=== PATIENT | male | born 1990 | race Caucasian/White ===

== ENCOUNTER 2017-04-28 16:47 | Emergency (ER) | payer OTHER ==
[2017-04-28] MEDS ORDERED: Acetaminophen/oxyCODONE 325-5 MG Tab PO ONE (17:10)
--- NOTE | 2017-04-28 17:18 | EDM.PDOC ---
ED HPI GENERAL MEDICAL PROBLEM - General Chief Complaint: General Stated Complaint: tooth abscess Time Seen by Provider: 04/28/17 17:00 Source of Information: Reports: Patient History Limitations: Reports: No Limitations - History of Present Illness INITIAL COMMENTS - FREE TEXT/NARRATIVE: Manuel comes to [facility] ED with a suspected infected wisdom tooth on the L maxilla , sxs for a week, and escalating today. He has an appt to see DDS next week, and is requesting medical therapy. He has been taking Ibuprofen 800 mg without benefit. - Related Data Allergies Allergy/AdvReac Type Severity Reaction Status Date / Time shellfish derived Allergy Severe Swelling Verified 04/28/17 16:53 amoxicillin trihydrate Allergy Rash Verified 04/28/17 16:53 [From Augmentin] potassium clavulanate Allergy Rash Verified 04/28/17 16:53 [From Augmentin] Home Meds: Home Meds Ibuprofen [Motrin] 800 mg PO QID PRN 04/28/17 [History] Past Medical History - Past Health History Medical/Surgical History: Denies Medical/Surgical History Social & Family History - Tobacco Use Smoking Status *Q: Current Every Day Smoker Years of Tobacco use: 7 Packs/Tins Daily: 0.5 Second Hand Smoke Exposure: Yes - Caffeine Use Caffeine Use: Reports: Energy Drinks, Soda - Alcohol Use Days Per Week of Alcohol Use: 2 Number of Drinks Per Day: 6 Total Drinks Per Week: 12 - Recreational Drug Use Recreational Drug Use: No Recreational Drug Type: Reports: Marijuana/Hashish - Living Situation & Occupation Living situation: Reports: ED ROS GENERAL - Review of Systems Review Of Systems: ROS reveals no pertinent complaints other than HPI. ED EXAM, GENERAL - Physical Exam Exam: See Below Exam Limited By: No Limitations General Appearance: Alert, WD/WN, Mild Distress Ears: Normal External Exam, Normal TMs Nose: Normal Inspection Throat/Mouth: Normal Lips, Normal Oropharynx, Normal Voice, Other (tooth #16 deeply caried and tender to percussion) Head: Normocephalic Neck: Normal Inspection, Supple, Non-Tender, Full Range of Motion Respiratory/Chest: Lungs Clear, Normal Breath Sounds Cardiovascular: Regular Rate, Rhythm Back Exam: Normal Inspection Extremities: Normal Inspection Neurological: Alert, Oriented, CN II-XII Intact, Normal Cognition Psychiatric: Normal Affect, Normal Mood Skin Exam: Warm, Dry Lymphatic: No Adenopathy Course - Vital Signs Text/Narrative:: Manuel has a caried #16 molar that needs DDS surgery. He was administered Percocet 5/325 po for pain, and sent home with Clindamycin 450 mg tid po pending visit with DDS. Last Recorded V/S: Last Vital Signs Temp 36.8 C 04/28/17 16:59 Pulse 90 04/28/17 16:59 Resp 20 04/28/17 16:59 BP 158/84 H 04/28/17 16:59 Pulse Ox 100 04/28/17 16:59 Departure - Departure Time of Disposition: 17:23 Disposition: Home, Self-Care 01 Condition: Fair Clinical Impression: Infected dental carries - Discharge Information - Problem List & Annotations (1) Infected dental carries SNOMED Code(s): 24059465 Code(s): K02.9 - DENTAL CARIES, UNSPECIFIED; K04.7 - PERIAPICAL ABSCESS WITHOUT SINUS Status: Acute Annotation/Comment:: Manuel was dispensed Clindamycin 450 mg tid pending visit with DDS, suggested oil of cloves packing to the caried molar with PRN changes, and NSAIDs for pain. - Problem List Review Problem List Initiated/Reviewed/Updated: Yes - Assessment/Plan Plan: Follow up with DDS.
[2017-04-28] MEDS ORDERED: Clindamycin HCl 150 MG Cap PO SCH ×3 (17:29→21:00)
[2017-04-28] MEDS ORDERED: Clindamycin HCl 150 MG Cap ONE (17:30)
[2017-04-28 17:46] VITALS: BP 128/69
== END 2017-04-28 17:45 | disposition home or self-care (01) ==
LOC: FB.ED 16:47
DX: K02.9 Dental caries, unspecified (principal); F17.210 Nicotine dependence, cigarettes, uncomplicated; Z88.1 Allergy status to other antibiotic agents; Z88.8 Allergy status to other drugs, medicaments and biological substances; Z91.013 Allergy to seafood
CPT/HCPCS: 99283; A9270

== ENCOUNTER 2020-11-08 04:13 | Emergency (ER) | payer MEDICAID ==
[2020-11-08 04:25] VITALS: BP 143/83; PULSE 91
--- NOTE | 2020-11-08 04:55 | EDM.PDOC ---
ED HPI GENERAL MEDICAL PROBLEM - General Chief Complaint: Skin Complaint Stated Complaint: SWOLLEN FACE Time Seen by Provider: 11/08/20 04:20 Source of Information: Reports: Patient History Limitations: Reports: No Limitations - History of Present Illness INITIAL COMMENTS - FREE TEXT/NARRATIVE: Patient presented to the ED because of a pimple that he itched last night and now it turned red and swollen. There is no fever or chills. He is able to talk and open his mouth without any difficulty. left side of the face Pain Score (Numeric/FACES): 8 - Related Data Allergies Allergy/AdvReac Type Severity Reaction Status Date / Time shellfish derived Allergy Severe Swelling Verified 11/08/20 04:22 amoxicillin trihydrate Allergy Rash Verified 11/08/20 04:22 [From Augmentin] potassium clavulanate Allergy Rash Verified 11/08/20 04:22 [From Augmentin] Home Meds: Home Meds Ibuprofen [Motrin] 800 mg PO QID PRN 04/28/17 [History] Clindamycin HCl 300 mg PO TID #60 capsule 11/08/20 [Rx] Ketorolac [Toradol] 10 mg PO TID PRN #15 tab 11/08/20 [Rx] cephALEXin [Keflex] 500 mg PO Q8H #30 cap 11/08/20 [Rx] Past Medical History - Past Health History Medical/Surgical History: Denies Medical/Surgical History Musculoskeletal History: Reports: Other (See Below) Other Musculoskeletal History: hx of broken bones as per patient. Psychiatric History: Reports: Anxiety Social & Family History - Family History Family Medical History: No Pertinent Family History - Tobacco Use Tobacco Use Status *Q: Current Every Day Tobacco User Years of Tobacco use: 10 Packs/Tins Daily: 1 Second Hand Smoke Exposure: Yes - Caffeine Use Caffeine Use: Reports: Coffee, Energy Drinks, Soda - Recreational Drug Use Recreational Drug Use: Yes Recreational Drug Type: Reports: Marijuana/Hashish - Living Situation & Occupation Living situation: Reports: ED ROS GENERAL - Review of Systems Review Of Systems: See Below Constitutional: Reports: No Symptoms HEENT: Reports: Other (facial pain and swelling) Respiratory: Reports: No Symptoms Cardiovascular: Reports: No Symptoms Endocrine: Reports: No Symptoms GI/Abdominal: Reports: No Symptoms : Reports: No Symptoms Musculoskeletal: Reports: No Symptoms Skin: Reports: No Symptoms Neurological: Reports: No Symptoms Psychiatric: Reports: No Symptoms ED EXAM, SKIN/RASH Exam: See Below Exam Limited By: No Limitations General Appearance: Alert, No Apparent Distress Ears: Normal External Exam, Normal Canal, Hearing Grossly Normal Nose: Normal Inspection, Normal Mucosa Throat/Mouth: Normal Inspection, Normal Lips Head: Atraumatic, Normocephalic Neck: Normal Inspection, Non-Tender, Full Range of Motion Respiratory/Chest: No Respiratory Distress, Lungs Clear, Normal Breath Sounds Cardiovascular: Normal Peripheral Pulses, Regular Rate, Rhythm, No Edema, No JVD, No Murmur GI/Abdominal: Normal Bowel Sounds, Soft, Non-Tender, No Organomegaly Back Exam: Normal Inspection, Full Range of Motion Extremities: Normal Inspection, Normal Range of Motion, Non-Tender, No Pedal Edema, Normal Capillary Refill Neurological: Alert, Oriented, CN II-XII Intact, Normal Cognition, Normal Gait, Normal Reflexes, No Motor/Sensory Deficits Psychiatric: Normal Affect, Normal Mood Skin: Warm, Dry, Intact, Normal Color, No Rash, Erythema Course - Vital Signs Text/Narrative:: Refused: Toradol, clindamycin, cephalexin Last Recorded V/S: Last Vital Signs Temp 36.5 C 11/08/20 04:15 Pulse 91 11/08/20 04:15 Resp 16 11/08/20 04:15 BP 143/83 H 11/08/20 04:15 Pulse Ox 95 11/08/20 04:15 - Orders/Labs/Meds Meds: Medications Discontinued Medications Generic Name Dose Route Start Last Admin Trade Name Cashq PRN Reason Stop Dose Admin Cephalexin 500 mg 11/08/20 04:44 Cephalexin 500 Mg Cap PO 11/08/20 04:45 NOW STA Clindamycin HCl 600 mg 11/08/20 04:44 Clindamycin Hcl 150 Mg Cap PO 11/08/20 04:45 NOW STA Ketorolac Tromethamine 60 mg 11/08/20 04:44 Ketorolac 60 Mg/2 Ml Sdv IM 11/08/20 04:45 NOW STA Departure - Departure Time of Disposition: 05:00 Disposition: Home, Self-Care 01 Condition: Good Clinical Impression: Facial cellulitis - Discharge Information Prescriptions: Clindamycin HCl 300 mg PO TID #60 capsule cephALEXin [Keflex] 500 mg PO Q8H #30 cap Ketorolac [Toradol] 10 mg PO TID PRN #15 tab PRN Reason: Pain Instructions: Cellulitis, Adult, [id number] Referrals: PCP,None [Primary Care Provider] - Forms: ED Department Discharge Additional Instructions: Please read discharge instructions on facial cellulitis Apply ice or heat whichever makes the pain feel better Take toradol 10 mg with tylenol 1000 mg every 8 hours as needed for pain and swelling Keflex/cephalexin and clindamycin 600 mg 3 times daily for 10 days Follow up in 3-5 days if it's not getting better Sepsis Event Note (ED) - Evaluation Sepsis Screening Result: No Definite Risk - Focused Exam Vital Signs: Vital Signs Temp Pulse Resp BP Pulse Ox 11/08/20 04:15 36.5 C 91 16 143/83 H 95
[2020-11-08] MEDS: Clindamycin HCl 150 MG Cap PO STA (04:57)
[2020-11-08] MEDS: Ketorolac 60 MG/2 ML SDV IM STA (04:57)
[2020-11-08] MEDS: Cephalexin 500 MG Cap PO STA (04:57)
== END 2020-11-08 05:05 | disposition home or self-care (01) ==
LOC: FB.ED 04:13
DX: L03.211 Cellulitis of face (principal); Z91.013 Allergy to seafood; Z88.1 Allergy status to other antibiotic agents; Z72.0 Tobacco use
CPT/HCPCS: 99283; A9270-GY; J1885

== ENCOUNTER 2020-11-13 13:51 | Emergency (ER) | payer MEDICAID ==
--- NOTE | 2020-11-13 14:00 | EDM.PDOC ---
ED HPI GENERAL MEDICAL PROBLEM - General Stated Complaint: possible heart attack Time Seen by Provider: 11/13/20 14:00 Source of Information: Reports: Patient History Limitations: Reports: No Limitations - History of Present Illness INITIAL COMMENTS - FREE TEXT/NARRATIVE: 30-year-old male who reports she was taking a shower at approximately 1:15 PM today and he begin to feel in his left arm and then it seemed to go all over the left side of his body and then he began to feel numb all over. He didn't begin to feel shortness of breath and like his heart was racing and he came to the emergency department for evaluation. He was able to ambulate into the emergency department without any problems and mother time I am in to see the patient, his symptoms have pretty much completely resolved except he still feels somewhat shaky. He has no headache. He has no vision problems. He has no arm or leg weakness or numbness. There is no shortness of breath and no feeling of racing heart rate at present. No nausea or vomiting. No trouble swallowing. No vision problems or problems thinking earlier. He states that he did feel very anxious at the time. He has no pain now. He rates his pain as a 0/10. There are no other associated signs or symptoms. There are no other modifying factors. Onset: Today (1:15 PM) Duration: Improving (Has essentially resolved in the emergency department.) Location: Reports: Other (No pain. As above.) Quality: Reports: Other (Not applicable.) Improves with: Reports: None Worsens with: Reports: None Context: Reports: Other (As above.) Associated Symptoms: Reports: No Other Symptoms (Except as above.) Treatments ERP IMPLEMENTATION CONSULTANT: Reports: Other (see below) (Nothing.) - Related Data Allergies Allergy/AdvReac Type Severity Reaction Status Date / Time shellfish derived Allergy Severe Swelling Verified 11/08/20 04:22 amoxicillin trihydrate Allergy Rash Verified 11/08/20 04:22 [From Augmentin] potassium clavulanate Allergy Rash Verified 11/08/20 04:22 [From Augmentin] Home Meds: Home Meds Ibuprofen [Motrin] 800 mg PO QID PRN 04/28/17 [History] Clindamycin HCl 300 mg PO TID #60 capsule 11/08/20 [Rx] Ketorolac [Toradol] 10 mg PO TID PRN #15 tab 11/08/20 [Rx] Albuterol Sulfate [Proair Digihaler] 2 puff NEB Q4HR PRN 11/13/20 [History] traMADol [Ultram] 1 tab PO Q6HR PRN 11/13/20 [History] Past Medical History Psychiatric History: Reports: ADHD, Anxiety, Depression, Other (See Below) (ODD) - Past Surgical History HEENT Surgical History: Reports: Tonsillectomy Musculoskeletal Surgical History: Reports: 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 ED ROS GENERAL - Review of Systems Review Of Systems: See Below Constitutional: Reports: No Symptoms HEENT: Reports: No Symptoms Respiratory: Reports: Shortness of Breath (With this episode. It has resolved now.) Cardiovascular: Reports: Chest Pain (And racing heart rate with this episode. That has resolved now.) GI/Abdominal: Reports: No Symptoms : Reports: No Symptoms Musculoskeletal: Reports: No Symptoms Skin: Reports: Lumps (Resolving infection and cyst on left face.) Neurological: Reports: Tingling Psychiatric: Reports: Anxiety Hematologic/Lymphatic: Reports: No Symptoms Immunologic: Reports: No Symptoms ED EXAM, GENERAL - Physical Exam Exam: See Below Exam Limited By: No Limitations General Appearance: Alert, WD/WN, No Apparent Distress Eye Exam: Bilateral Eye: EOMI, Normal Inspection, PERRL Ears: Normal External Exam, Hearing Grossly Normal Ear Exam: Bilateral Ear: Auricle Normal Nose: Normal Inspection, Normal Mucosa, No Blood Throat/Mouth: Normal Inspection, Normal Lips, Normal Oropharynx, Normal Voice, No Airway Compromise Head: Atraumatic, Normocephalic Neck: Normal Inspection, Supple, Non-Tender, Full Range of Motion Respiratory/Chest: No Respiratory Distress, Lungs Clear, Normal Breath Sounds, No Accessory Muscle Use, Chest Non-Tender Cardiovascular: Normal Peripheral Pulses, Regular Rate, Rhythm, No Murmur Peripheral Pulses: 2+: Radial (L), Radial (R) GI/Abdominal: Normal Bowel Sounds, Soft, Non-Tender, No Mass Back Exam: Normal Inspection, Full Range of Motion Extremities: Normal Inspection, Normal Range of Motion, Non-Tender, No Pedal Edema, Normal Capillary Refill Neurological: Alert, Oriented, CN II-XII Intact, Normal Cognition, No Motor/Sensory Deficits, Other (No pertinent. No dysmetria. Normal gait.) Psychiatric: Anxious Skin Exam: Warm, Dry, Intact, Normal Color, No Rash #1 Interpretation EKG Date: 11/13/20 Time: 14:03 Rhythm: NSR Rate (Beats/Min): 74 [place]: Normal P-Wave: Present QRS: Normal ST-T: Normal QT: Normal Comparison: No Change (No change from EKG performed on 06/06/2014) EKG Interpretation Comments: This is a normal EKG. Course - Vital Signs Last Recorded V/S: Last Vital Signs Temp 36.3 C 11/13/20 13:55 Pulse 87 11/13/20 13:55 Resp 22 H 11/13/20 13:55 BP 163/87 H 11/13/20 13:55 Pulse Ox 97 11/13/20 13:55 - Orders/Labs/Meds Orders: Active Orders 24 hr Category Date Time Status EKG Documentation Completion [RC] ASDIRECTED Care 11/13/20 14:01 Active EKG 12 Lead [EK] Routine Ther 11/13/20 14:01 Ordered - Re-Assessments/Exams Free Text/Narrative Re-Assessment/Exam: 11/13/20 14:25: Patient's EKG was reassuringly normal and unchanged from 06/06/2014 EKG his exam was also reassuringly normal and his symptoms had completely resolved. What he describes sounds very much like anxiety related and a panic attack. He is hemodynamically and neurologically stable and I do not see any evidence of any concerning or serious problem at this point. He still does have a left facial subcutaneous cyst abscess that has improved but he still needs to keep his follow-up for I&D of this. Departure - Departure Time of Disposition: 14:35 Disposition: Home, Self-Care 01 Condition: Good Clinical Impression: Panic attack, Anxiety, Sebaceous cyst - Discharge Information Instructions: Panic Attack, [id number], Epidermal Cyst, [id number] Referrals: PCP,None [Primary Care Provider] - Forms: ED Department Discharge Additional Instructions: Your exam was reassuringly normal. What you described sounds like a panic attack associated with anxiety and it appears to have resolved. I do not see anything that points toward a more serious problem at this time. You still need to get into the clinic as you are planning to have the cyst removed on your face. Continue to take the antibiotics that you were placed on. Back to the emergency department for recurrent weakness or numbness, difficulty breathing, high fever, severe weakness or any other concerning sign or symptom. Sepsis Event Note (ED) - Focused Exam Vital Signs: Vital Signs Temp Pulse Resp BP Pulse Ox 11/13/20 13:55 36.3 C 87 22 H 163/87 H 97 - My Orders Last 24 Hours: My Active Orders 11/13/20 14:01 EKG Documentation Completion [RC] ASDIRECTED EKG 12 Lead [EK] Routine - Assessment/Plan Last 24 Hours: My Active Orders 11/13/20 14:01 EKG Documentation Completion [RC] ASDIRECTED EKG 12 Lead [EK] Routine
[2020-11-13 15:05] VITALS: BP 143/82; PULSE 88
== END 2020-11-13 14:42 | disposition home or self-care (01) ==
LOC: FB.ED 13:51
DX: F41.0 Panic disorder [episodic paroxysmal anxiety] (principal); L72.3 Sebaceous cyst; Z72.0 Tobacco use; Z91.013 Allergy to seafood; Z88.0 Allergy status to penicillin; Z88.1 Allergy status to other antibiotic agents
CPT/HCPCS: 93005; 99284-25

== ENCOUNTER 2021-09-29 15:08 | Emergency (ER) | payer MEDICAID ==
[2021-09-29] MEDS ORDERED: Morphine 4 MG/ML VIAL IVPUSH ONE (15:23)
[2021-09-29] MEDS ORDERED: Ondansetron 4 MG/2 ML SDV IVPUSH ONE (15:23)
[2021-09-29] MEDS ORDERED: Sodium Chloride 0.9% 1,000 ML IV SCH (15:30)
[2021-09-29] MEDS: Sodium Chloride 0.9% 10 ML Syringe FLUSH PRN ×2 (15:34→16:18)
[2021-09-29 15:47] VITALS: BP 146/94; PULSE 113
[2021-09-29] MEDS ORDERED: Iopamidol 755 Mg/ML 75 ML Bottle IV ONE (16:11)
[2021-09-29] MEDS ORDERED: Ketorolac 30 MG/ML SDV IVPUSH STA (16:13)
== END 2021-09-29 17:16 | disposition home or self-care (01) ==
LOC: FB.ED 15:08
DX: A08.4 Viral intestinal infection, unspecified (principal); Z91.013 Allergy to seafood; Z88.0 Allergy status to penicillin; Z72.0 Tobacco use
CPT/HCPCS: 36415; 74177; 80053; 82150; 83605; 83690; 85025; 96374; 96375; 99284; J1885; J2270; J2405; J7030; Q9967

== ENCOUNTER 2022-01-02 04:31 | Emergency (ER) | payer MEDICAID ==
[2022-01-02] MEDS: methylPREDNISolone Sodium Succinate 125 MG/2 ML SDV IM ONE (04:56)
[2022-01-02] MEDS: Albuterol/Ipratropium 3.0-0.5 MG/3 ML Neb Soln NEB ONE (05:05)
[2022-01-02 05:42] LABS: CORONAVIRUS COVID-19 NAA NEGATIVE (NEGATIVE)
[2022-01-02 06:05] VITALS: BP 130/79; PULSE 92
== END 2022-01-02 06:21 | disposition home or self-care (01) ==
LOC: FB.ED 04:31
DX: J45.901 Unspecified asthma with (acute) exacerbation (principal); Z91.013 Allergy to seafood; Z88.0 Allergy status to penicillin; Z72.0 Tobacco use; Z20.822 Contact with and (suspected) exposure to COVID-19
CPT/HCPCS: 0240U; 71045; 94640; 96372; 99282; 99284; J2930; J7620

== ENCOUNTER 2022-02-19 02:12 | Emergency (ER) | payer MEDICAID ==
[2022-02-19] MEDS: Ondansetron 4 MG Tab.DIS PO ONE ×2 (02:39→02:43)
[2022-02-19 02:57] VITALS: BP 138/94; PULSE 89
[2022-02-19] MEDS ORDERED: Acetaminophen/HYDROcodone 325-5 MG Tab PO ONE (03:50)
== END 2022-02-19 04:02 | disposition home or self-care (01) ==
LOC: FB.ED 02:12
DX: S06.0X0A Concussion without loss of consciousness, initial encounter (principal); S00.03XA Contusion of scalp, initial encounter; Z91.013 Allergy to seafood; W22.09XA Striking against other stationary object, initial encounter; Y93.64 Activity, baseball
CPT/HCPCS: 70450; 99281; 99284-25; A9270-GY; Q0162

== ENCOUNTER 2022-03-30 20:24 | Emergency (ER) | payer MEDICAID ==
[2022-03-30] MEDS ORDERED: Ibuprofen 800 MG Tab PO ONE (20:25)
[2022-03-30] MEDS ORDERED: Lidocaine 2% with EPINEPHrine 1:100,000 20 ML MDV INFILT ONE (20:25)
[2022-03-30] MEDS ORDERED: Acetaminophen/HYDROcodone 325-10 MG Tab PO ONE (20:55)
[2022-03-30] MEDS ORDERED: LORazepam 0.5 MG Tab PO ONE (20:56)
[2022-03-30 21:17] VITALS: BP 137/86; PULSE 68
== END 2022-03-30 22:06 ==
LOC: FB.ED 20:24
DX: S41.011A Laceration without foreign body of right shoulder, initial encounter (principal); F41.9 Anxiety disorder, unspecified; Z88.0 Allergy status to penicillin; Z91.013 Allergy to seafood; W25.XXXA Contact with sharp glass, initial encounter
CPT/HCPCS: 12002; 99283; A9270-GY

== ENCOUNTER 2022-11-26 14:44 | Emergency (ER) | payer MEDICAID ==
[2022-11-26] MEDS ORDERED: Sodium Chloride 0.9% 10 ML Syringe FLUSH PRN (15:21)
[2022-11-26] MEDS ORDERED: Ondansetron 4 MG/2 ML SDV IVPUSH ONE (15:23)
[2022-11-26 15:25] VITALS: PULSE 82
[2022-11-26] MEDS ORDERED: Sodium Chloride 0.9% 1,000 ML IV SCH (15:30)
[2022-11-26] MEDS: Ketorolac 30 MG/ML SDV IVPUSH ONE ×2 (15:54→16:02)
[2022-11-26] MEDS ORDERED: Iopamidol 755 Mg/ML 100 ML Bottle IV ONE (16:04)
[2022-11-26 16:27] LABS: ESTIMATED GFR 121 mL/min (>60)
[2022-11-26 17:13] VITALS: BP 141/64
== END 2022-11-26 17:06 | disposition home or self-care (01) ==
LOC: FB.ED 14:44
DX: K52.9 Noninfective gastroenteritis and colitis, unspecified (principal); J45.909 Unspecified asthma, uncomplicated; F17.210 Nicotine dependence, cigarettes, uncomplicated; Z91.013 Allergy to seafood; Z88.0 Allergy status to penicillin
CPT/HCPCS: 36415; 74177; 80053; 81001; 82150; 83690; 85025; 96361; 96374; 99284; J2405; J7030; Q9967; J1885